=== PATIENT | male | born 1960 | race Caucasian/White ===

== ENCOUNTER 2020-06-12 11:04 | Emergency (ER) | payer MEDICARE ==
[~2020-06-12 11:04] MED LIST: ASPIR-LOW81 MG PO; CLONAZEPAM1 MG PO; FISH OIL 1,0001 EACH PO; FORTAMET500 MG PO; GABAPENTIN300 MG PO; HYSINGLA ER20 MG PO; ISOSORBIDE MONO30 MG PO; LIPITOR TAB 2020 MG PO; METOPROLOL TART25 MG PO; NITROSTAT0.4 MG SL; PLAVIX75 MG PO; TIROSINT25 MCG PO; VITAMIN D250000 UNIT PO; ZYRTEC10 M3 PO
== END 2020-06-12 13:21 | disposition home or self-care (01) ==
LOC: ER1 11:04
DX: U07.1 COVID-19 (principal); E78.5 Hyperlipidemia, unspecified; I11.9 Hypertensive heart disease without heart failure; E03.9 Hypothyroidism, unspecified; Z95.1 Presence of aortocoronary bypass graft; Z90.89 Acquired absence of other organs; Z88.5 Allergy status to narcotic agent; Z88.8 Allergy status to other drugs, medicaments and biological substances
CPT/HCPCS: 71045; 99283

== ENCOUNTER 2020-08-05 05:56 | Emergency (ER) | payer MEDICARE ==
[2020-08-05 06:18] LABS: HEMOGLOBIN 16.6 gm/dl (14.0-17.5); RED BLOOD COUNT 5.2 M/UL (4.20-5.50); WHITE BLOOD COUNT 9.9 K/UL (4.5-11.0)
[2020-08-05 06:53] LABS: BUN/CREATININE RATIO 17 (0-10)
[2020-08-05] MEDS ORDERED: ZOFRAN ODT 4 MG4 MG SL (09:19)
[2020-08-05] MEDS ORDERED: ENDOCET 5-3251 EACH PO (09:19)
== END 2020-08-05 09:36 | disposition home or self-care (01) ==
LOC: ER1 05:56
PROVIDERS: Emergency Medicine
DX: N13.2 Hydronephrosis with renal and ureteral calculous obstruction (principal); E11.9 Type 2 diabetes mellitus without complications; I10 Essential (primary) hypertension; I25.10 Atherosclerotic heart disease of native coronary artery without angina pectoris; Z88.5 Allergy status to narcotic agent; Z88.8 Allergy status to other drugs, medicaments and biological substances
CPT/HCPCS: 80053; 81001; 85025; 87086; 96374; 96375; 99284; J1170; J2405

== ENCOUNTER → 2021-02-20 | Outpatient (CLI) | payer MEDICARE ==
[~2021-02-20] MED LIST changes: +ENDOCET 5-3251 EACH PO; +ZOFRAN ODT 4 MG4 MG SL
== END ==
LOC: CT 08:10
DX: R10.9 Unspecified abdominal pain (principal); Q44.6 Cystic disease of liver; E11.9 Type 2 diabetes mellitus without complications; I10 Essential (primary) hypertension
CPT/HCPCS: Q9967

== ENCOUNTER 2021-03-17 22:38 | Inpatient (IN) | payer MEDICARE ==
[~2021-03-17] VITALS: Ht 167.6 cm; Wt 96.6 kg
[~2021-03-17 22:38] MED LIST changes: -CLONAZEPAM1 MG PO; -FISH OIL 1,0001 EACH PO; -FORTAMET500 MG PO; -LIPITOR TAB 2020 MG PO; -METOPROLOL TART25 MG PO; -NITROSTAT0.4 MG SL; -PLAVIX75 MG PO; -TIROSINT25 MCG PO; -VITAMIN D250000 UNIT PO
[2021-03-18 00:25] LABS: RED BLOOD COUNT 5.28 M/UL (4.20-5.50); WHITE BLOOD COUNT 13.3 K/UL (4.5-11.0)
[2021-03-18 00:53] LABS: BUN/CREATININE RATIO 24 (0-10)
[2021-03-18] MEDS ORDERED: PLAVIX75 MG PO (09:22)
[2021-03-18] MEDS ORDERED: FISH OIL 1,0001 EACH PO (09:22)
[2021-03-18] MEDS ORDERED: METOPROLOL TART25 MG PO (09:23)
[2021-03-18] MEDS ORDERED: METFORMIN HCL500 M2 PO (09:25)
[2021-03-18] MEDS ORDERED: VITAMIN D21250 MCG PO (09:25)
[2021-03-18] MEDS ORDERED: NITROSTAT0.4 MG SL (09:25)
[2021-03-18] MEDS ORDERED: CLONAZEPAM1 MG PO (09:26)
[2021-03-18] MEDS ORDERED: ATORVASTATIN CA40 MG PO (09:26)
[2021-03-18] MEDS ORDERED: LEVOTHYROXINE50 MCG PO (09:27)
[2021-03-18] MEDS ORDERED: FISH OIL 1,0001 EAC1 PO (11:16)
[2021-03-18] MEDS ORDERED: ASCORBIC ACID500 MG PO (11:16)
[2021-03-19 04:55] LABS: HEMOGLOBIN 15.7 gm/dl (14.0-17.5); RED BLOOD COUNT 4.91 M/UL (4.20-5.50); WHITE BLOOD COUNT 8.8 K/UL (4.5-11.0)
[2021-03-19 05:15] LABS: BUN/CREATININE RATIO 12 (0-10)
--- NOTE | 2021-03-19 17:32 | NUR ---
PT LEFT VIA BED TO ROOM 5122 PER TRANSPORT CALLED [facility], DR CURRAN JUST SEEN THE PT , I TOLD HIM HE WAS GOING TO 5122 NOW
[2021-03-20 09:19] LABS: HEMOGLOBIN 15.3 gm/dl (14.0-17.5); RED BLOOD COUNT 4.78 M/UL (4.20-5.50)
[2021-03-20 09:27] LABS: WHITE BLOOD COUNT 11.1 K/UL (4.5-11.0)
[2021-03-20 09:36] LABS: BUN/CREATININE RATIO 13 (0-10)
[2021-03-21 07:43] LABS: HEMOGLOBIN 14.5 gm/dl (14.0-17.5); RED BLOOD COUNT 4.7 M/UL (4.20-5.50)
[2021-03-21 07:51] LABS: WHITE BLOOD COUNT 7.2 K/UL (4.5-11.0)
[2021-03-21 08:09] LABS: BUN/CREATININE RATIO 11 (0-10)
[2021-03-21] MEDS ORDERED: METFORMIN HCL500 M2 PO (15:22)
[2021-03-21] MEDS ORDERED: CLONAZEPAM1 MG PO (15:49)
[2021-03-21] MEDS ORDERED: HYSINGLA ER20 MG PO (15:49)
== END 2021-03-21 17:38 | disposition home or self-care (01) | DRG 390 ==
LOC: ER1 22:38 → M/S 03-18 02:53 → CDU 03-18 02:53 → PROG CARE 03-19 08:41 → M/S 03-19 17:44
PROVIDERS: Internal Medicine; Physician Assistant; ADMIT Internal Medicine
DX: K56.600 Partial intestinal obstruction, unspecified as to cause (principal); E11.9 Type 2 diabetes mellitus without complications; I10 Essential (primary) hypertension; Z20.822 Contact with and (suspected) exposure to COVID-19; K21.9 Gastro-esophageal reflux disease without esophagitis; M79.7 Fibromyalgia; E78.5 Hyperlipidemia, unspecified; I25.10 Atherosclerotic heart disease of native coronary artery without angina pectoris; F41.9 Anxiety disorder, unspecified; E78.00 Pure hypercholesterolemia, unspecified; G89.29 Other chronic pain; Z79.01 Long term (current) use of anticoagulants; Z79.82 Long term (current) use of aspirin; Z95.1 Presence of aortocoronary bypass graft; Z79.4 Long term (current) use of insulin; Z98.890 Other specified postprocedural states; Z88.5 Allergy status to narcotic agent; Z88.6 Allergy status to analgesic agent; Z88.8 Allergy status to other drugs, medicaments and biological substances; Z95.5 Presence of coronary angioplasty implant and graft; Z83.49 Family history of other endocrine, nutritional and metabolic diseases; Z82.49 Family history of ischemic heart disease and other diseases of the circulatory system; Z87.891 Personal history of nicotine dependence; I25.2 Old myocardial infarction
CPT/HCPCS: 36415; 71045; 74019; 80048; 80053; 80076; 81001; 82150; 82550; 82553; 82962; 83605; 83690; 84484; 85025; 85027; 93005; 94640; 94664; 94760; 96374; 96375; 99285; C9113; J1650; J2270; J2405; J2543; J3480; Q9963; Q9967; U0002

== ENCOUNTER → 2021-05-15 | Outpatient (CLI) | payer MEDICARE ==
[~2021-05-15] MED LIST changes: +ASCORBIC ACID500 MG PO; +ATORVASTATIN CA40 MG PO; +CLONAZEPAM1 MG PO; +FISH OIL 1,0001 EAC1 PO; +FISH OIL 1,0001 EACH PO; +LEVOTHYROXINE50 MCG PO; +METFORMIN HCL500 M2 PO; +METOPROLOL TART25 MG PO; +NITROSTAT0.4 MG SL; +PLAVIX75 MG PO; +VITAMIN D21250 MCG PO
== END ==
LOC: ECHO 09:56
DX: I25.10 Atherosclerotic heart disease of native coronary artery without angina pectoris (principal); I35.1 Nonrheumatic aortic (valve) insufficiency
CPT/HCPCS: ECHO; 93306